=== PATIENT | male | born 1980 | race Caucasian/White ===

== ENCOUNTER 2020-01-27 19:43 | Emergency (ER) | payer OTHER ==
[~2020-01-27] VITALS: Ht 185.4 cm; Wt 113.6 kg
[2020-01-27] MEDS ORDERED: OXYMETAZOLINE 0.05% NASAL SPRAY 30ML BOTTLE. NS ONE (20:30)
[2020-01-27] MEDS ORDERED: MORPHINE SULFATE 4 MG/ML VIAL. IV/SQ PRN (20:30)
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
[2020-01-27] MEDS ORDERED: CLINDAMYCIN 600MG PREMIX 50 ML IV ONE (22:00)
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
[2020-01-27] MEDS ORDERED: CLIN150C14 PO (22:23)
[2020-01-27] MEDS ORDERED: MORPHINE SULFATE 10 MG/ML VIAL. IM ONE (22:30)
[2020-01-27] MEDS ORDERED: CLINDAMYCIN IM 600 MG/4 ML VIAL. IM ONE (22:30)
[2020-01-27 22:32] LABS: BASO # 0.1 x10^3/uL (0.0-0.2); BASO % 1 % (0-3); EOS # 0.1 x10^3/uL (0.0-0.7); EOS % 1 % (0-3); HEMATOCRIT 43.1 % (39.0-53.0); HEMOGLOBIN 15.1 g/dL (13.0-17.5); LYMPH # 1.3 x10^3/uL (1.0-4.8); LYMPH % 11 % (24-48); MEAN CORPUSCULAR HEMOGLOBIN 31 pg (25-35); MEAN CORPUSCULAR HGB CONC 35 g/dL (31-37); MEAN CORPUSCULAR VOLUME 87 fL (79-100); MONO # 0.7 x10^3/uL (0.0-1.1); MONO % 6 % (0-9); NEUT # 9.7 x10^3/uL (1.8-7.7); NEUT % 82 % (31-73); PLATELET COUNT 248 x10^3/uL (140-400); RED BLOOD COUNT 4.94 x10^6/uL (4.30-5.70); WHITE BLOOD COUNT 11.9 x10^3/uL (4.0-11.0)
[2020-01-27 22:42] LABS: PROTHROMBIN TIME PATIENT 12.1 SEC (11.7-14.0)
[2020-01-27 22:44] LABS: CALCIUM 8.9 mg/dL (8.5-10.1); CREATININE 0.9 mg/dL (0.7-1.3); POTASSIUM 4.3 mmol/L (3.5-5.1)
[2020-01-27 22:50] LABS: ALBUMIN 3.8 g/dL (3.4-5.0); TOTAL BILIRUBIN 0.3 mg/dL (0.2-1.0)
[2020-01-27 23:00] VITALS: BP 137/81
[2020-01-27 23:06] LABS: ALBUMIN/GLOBULIN RATIO 1.1 (1.0-1.7); TOTAL PROTEIN 7.4 g/dL (6.4-8.2)
== END 2020-01-27 23:03 | disposition home or self-care (01) ==
LOC: ER 19:43 → EEVIPCON 19:43 → ER 23:03
DX: S02.2XXA Fracture of nasal bones, initial encounter for closed fracture (principal); S00.03XA Contusion of scalp, initial encounter; M25.561 Pain in right knee; K21.9 Gastro-esophageal reflux disease without esophagitis; F43.12 Post-traumatic stress disorder, chronic; Z87.891 Personal history of nicotine dependence; Z88.0 Allergy status to penicillin; Z88.8 Allergy status to other drugs, medicaments and biological substances; Y08.89XA Assault by other specified means, initial encounter; Y93.39 Activity, other involving climbing, rappelling and jumping off; Y92.89 Other specified places as the place of occurrence of the external cause; Y99.8 Other external cause status
CPT/HCPCS: 36415; 70450; 70486; 71250; 72125; 73562; 80053; 85025; 85610; 85730; 96372; 99285; J2270; J3490